=== PATIENT | female | born 1950 | race Asian ===

== ENCOUNTER 2019-02-16 14:00 | Emergency (ER) | payer OTHER, MEDICAID ==
[~2019-02-16] VITALS: Ht 157.5 cm; Wt 63.5 kg
[~2019-02-16 14:00] MED LIST: FURO-149 PO; LEVO175T2 PO; OMEP20CA11 PO; SIMV40TA5 PO
--- NOTE | 2019-02-16 14:04 | NUR ---
CALLED FOR TRIAGE, PT IS IN RESTROOM WITH ASSIST BY FAMILY
[2019-02-16 14:15] VITALS: BP_SYST 133
--- NOTE | 2019-02-16 14:21 | NUR ---
PT OUT OF RESTROOM AND PLACED IN BED #1 AND TRIAGED. REPORT GIVEN TO URBAN
[2019-02-16] MEDS ORDERED: NACL 0.9% 1,000 ML IV ONE (14:39)
--- NOTE | 2019-02-16 14:41 | NUR ---
Patient is awake, alert, and oriented x4. Her daughter is at bedside. Patient is complaining of dizziness and nausea x1 week, she denies vomiting, diarrhea, and pain. No nystagmus noted.
[2019-02-16] MEDS ORDERED: ONDANSETRON HCL 4 MG/2 ML VIAL IVP ONE (14:45)
--- NOTE | 2019-02-16 14:45 | NUR ---
ER Dr. Currie at bedside examining patient.
[2019-02-16] MEDS ORDERED: MECLIZINE HCL 25 MG TABLET (ANITVERT) PO ONE (15:00)
--- NOTE | 2019-02-16 15:26 | NUR ---
X-ray ast bedside.
[2019-02-16 15:32] LABS: CALCIUM 8.8 mg/dL (8.4-11.0); CREATININE 1.45 mg/dL (0.55-1.30); POTASSIUM 4.7 mmol/L (3.5-5.1)
[2019-02-16 15:38] LABS: ALBUMIN 3.6 g/dL (3.4-4.8); TOTAL BILIRUBIN 0.7 mg/dL (0.0-1.0)
[2019-02-16 15:39] LABS: BASOPHILS # (AUTO) 0.1 K/uL (0.0-0.2); BASOPHILS % (AUTO) 0.9 % (0.0-2.0); EOSINOPHILS # (AUTO) 0.3 K/uL (0.0-0.4); EOSINOPHILS % (AUTO) 4.3 % (0.0-4.0); HEMOGLOBIN 11.2 g/dL (12.0-16.0); INR 1.1 (0.8-1.2); LYMPHOCYTES # (AUTO) 0.7 K/uL (1.0-5.5); LYMPHOCYTES % (AUTO) 11.4 % (20.5-51.5); MEAN CORPUSCULAR HEMOGLOBIN 30 pg (27-31); MEAN CORPUSCULAR HGB CONC 33 % (32-36); MEAN CORPUSCULAR VOLUME 92 fL (79.0-98.0); MONOCYTES # (AUTO) 0.5 K/uL (0.0-1.0); MONOCYTES % (AUTO) 8.4 % (1.7-9.3); NEUTROPHILS # (AUTO) 4.7 K/uL (1.8-7.7); PLATELET COUNT (AUTO) 151 K/uL (130-430); PROTHROMBIN TIME 10.9 SECS (9.5-12.5); RED BLOOD CELL COUNT(AUTO) 3.72 MIL/uL (4.2-6.2); RED CELL DISTRIBUTION WIDTH 13.7 % (9.0-15.0); WHITE BLOOD COUNT (AUTO) 6.3 K/uL (4.8-10.8)
--- NOTE | 2019-02-16 15:40 | NUR ---
Patient transported to radiology via gurney, accompanied by emg technician.
--- NOTE | 2019-02-16 15:53 | NUR ---
Returned from radiology, back to [facility].
[2019-02-16 16:48] LABS: BILIRUBIN,URINE NEGATIVE (NEGATIVE); BLOOD, URINE 1+ (NEGATIVE); COLOR,URINE YELLOW (YELLOW); GLUCOSE,URINE NEGATIVE (NEGATIVE); KETONES,URINE NEGATIVE (NEGATIVE); LEUKOCYTE ESTERASE ,URINE 3+ (NEGATIVE); NITRITE, URINE NEGATIVE (NEGATIVE); PROTEIN URINE NEGATIVE (NEGATIVE); UROBILINOGEN,URINE 0.2 (0.2-1.0)
[2019-02-16 17:01] LABS: CLARITY/URINE HAZY (CLEAR)
[2019-02-16 17:04] LABS: BACTERIA,URINE MODERATE /HPF (None Seen); MUCUS,URINE None Seen /LPF (None Seen); RBC,URINE NONE SEEN /HPF (0-3); WBC,URINE 50-80 /HPF (0-3)
--- NOTE | 2019-02-16 17:24 | NUR ---
Patient given written and verbal discharge instructions and verbalizes understanding. ER MD discussed with patient the results and treatment provided. Patient in stable condition. ID arm band removed. IV catheter removed intact and dressing applied, no active bleeding. Rx of antivert, lomotil given. Patient educated on pain management and to follow up with PMD. Pain Scale 0/10. Opportunity for questions provided and answered. Medication side effect fact sheet provided.
[2019-02-16 17:25] VITALS: BP_SYST 128
== END 2019-02-16 17:24 | disposition home or self-care (01) ==
LOC: SED 14:00
DX: R42 Dizziness and giddiness (principal); K52.9 Noninfective gastroenteritis and colitis, unspecified; E11.9 Type 2 diabetes mellitus without complications; F03.90 Unspecified dementia, unspecified severity, without behavioral disturbance, psychotic disturbance, mood disturbance, and anxiety; I10 Essential (primary) hypertension; E07.9 Disorder of thyroid, unspecified; Z79.899 Other long term (current) drug therapy; Z94.4 Liver transplant status
CPT/HCPCS: 36415; 70450; 71045; 80053; 81000; 82140; 82150; 82550; 83605; 83690; 83880; 84484; 85025; 85610; 85730; 87040; 87086; 87186; 93005; 96361; 96374; 99284; J2405; J7030; J8597

== ENCOUNTER 2019-03-02 09:35 | Inpatient (IN) | payer OTHER, MEDICAID ==
[~2019-03-02] VITALS: Ht 162.6 cm; Wt 55.8 kg
[2019-03-02 09:41] VITALS: BP_SYST 101
--- NOTE | 2019-03-02 09:41 | NUR ---
Patient to ER bed 03 to gown for evaluation. Side rails up.
--- NOTE | 2019-03-02 09:45 | NUR ---
Patient brought in by ambulance to the ED c/o flu-like symptoms, generalized weakness and near-syncopal episodes that started a week ago. Patient is a liver transplant recepient. Denied any chest pain or shortness of breath. Denied any fevers or chills. Patient is alert and oriented x4, respirations even and unlabored, speaking in full sentences. Tachycardic, all other VSS, pain level 0/10. Sister at bedside. Informed of wait time. Instructed to notify ED staff for any changes in condition or worsening of symptoms. Patient verbalized understanding.
--- NOTE | 2019-03-02 10:10 | NUR ---
ER Dr. Duffy at bedside re-examining patient.
[2019-03-02] MEDS ORDERED: NACL 0.9% 1,000 ML IV ONE (10:14)
[2019-03-02] MEDS ORDERED: MECLIZINE HCL 25 MG TABLET (ANITVERT) PO ONE (10:15)
--- NOTE | 2019-03-02 10:30 | NUR ---
ECG done at bedside as ordered by Dr. Duffy. Patient tolerated the procedure well. Report given to
--- NOTE | 2019-03-02 10:34 | NUR ---
# 20 gauge angiocath placed to RAC. Use of asceptic technique. Opsite placed over site. Blood return noted. Blood for lab drawn from site. Flushed with 10 cc of normal saline. No evidence of infiltration noted. Patient tolerated well.
--- NOTE | 2019-03-02 10:40 | NUR ---
Administered Meclizine PO as ordered by Dr. Duffy. Patient tolerated the medication well. See eMAR for details.
[2019-03-02 10:50] LABS: BASOPHILS % (AUTO) 0.9 % (0.0-2.0); EOSINOPHILS # (AUTO) 0.2 K/uL (0.0-0.4); HEMATOCRIT 34.2 % (36-48); HEMOGLOBIN 11.3 g/dL (12.0-16.0); LYMPHOCYTES # (AUTO) 0.5 K/uL (1.0-5.5); LYMPHOCYTES % (AUTO) 9.7 % (20.5-51.5); MEAN CORPUSCULAR HEMOGLOBIN 30 pg (27-31); MEAN CORPUSCULAR HGB CONC 33 % (32-36); MEAN CORPUSCULAR VOLUME 92 fL (79.0-98.0); MONOCYTES # (AUTO) 0.3 K/uL (0.0-1.0); MONOCYTES % (AUTO) 7.3 % (1.7-9.3); NEUTROPHILS # (AUTO) 3.7 K/uL (1.8-7.7); NEUTROPHILS % (AUTO) 77.1 % (40.0-70.0); PLATELET COUNT (AUTO) 110 K/uL (130-430); RED BLOOD CELL COUNT(AUTO) 3.74 MIL/uL (4.2-6.2); RED CELL DISTRIBUTION WIDTH 13.5 % (9.0-15.0); WHITE BLOOD COUNT (AUTO) 4.7 K/uL (4.8-10.8)
[2019-03-02 11:06] LABS: CALCIUM 8.8 mg/dL (8.4-11.0); CREATININE 1.49 mg/dL (0.55-1.30); POTASSIUM 5.2 mmol/L (3.5-5.1)
[2019-03-02 11:39] LABS: ALBUMIN 3.4 g/dL (3.4-4.8); TOTAL BILIRUBIN 0.7 mg/dL (0.0-1.0)
--- NOTE | 2019-03-02 12:49 | NUR ---
Flu swab done at bedside as ordered by Dr. Duffy. Patient tolerated the procedure well.
--- NOTE | 2019-03-02 13:10 | NUR ---
Patient taken to CT via gurney, in stable condition.
--- NOTE | 2019-03-02 13:45 | NUR ---
Patient is back from CT in stable condition.
--- NOTE | 2019-03-02 13:55 | NUR ---
called dr tse for admission per dr kennedy.
--- NOTE | 2019-03-02 14:21 | NUR ---
dr tse called back for admission, talking to dr kennedy per admission
[2019-03-02 14:22] LABS: BILIRUBIN,URINE NEGATIVE (NEGATIVE); BLOOD, URINE 3+ (NEGATIVE); CLARITY/URINE SL CLOUDY (CLEAR); COLOR,URINE YELLOW (YELLOW); GLUCOSE,URINE NEGATIVE (NEGATIVE); KETONES,URINE NEGATIVE (NEGATIVE); LEUKOCYTE ESTERASE ,URINE 2+ (NEGATIVE); NITRITE, URINE NEGATIVE (NEGATIVE); PROTEIN URINE NEGATIVE (NEGATIVE); UROBILINOGEN,URINE 0.2 (0.2-1.0)
--- NOTE | 2019-03-02 14:43 | NUR ---
Pt reports she is full code.
[2019-03-02] MEDS ORDERED: PRED5TAB PO (14:52)
[2019-03-02] MEDS ORDERED: GLU500 PO (14:52)
[2019-03-02] MEDS ORDERED: TACR1CAP PO (14:52)
[2019-03-02] MEDS ORDERED: COLC0.6T67 PO (14:52)
[2019-03-02] MEDS ORDERED: CEL250 PO (14:52)
[2019-03-02] MEDS ORDERED: BACL10TA PO (14:52)
[2019-03-02] MEDS ORDERED: CHOL2000 PO (14:52)
[2019-03-02] MEDS ORDERED: MULT-1089 PO (14:52)
[2019-03-02] MEDS ORDERED: MAGN400T10 PO (14:52)
[2019-03-02] MEDS ORDERED: GABA-529 PO (14:53)
[2019-03-02 15:02] LABS: BACTERIA,URINE MODERATE /HPF (None Seen); RBC,URINE 20-50 /HPF (0-3)
--- NOTE | 2019-03-02 15:05 | NUR ---
Transfer to 103B via ACLS protocol. Licensed nurse present. IV present no signs or symptoms of infiltration. Patient will be admitted to care of Dr. Fitzgerald. Admitted to MST unit. Will go to room 103B. Belongings list completed. Complete and up to date summary report printed. SBAR report to be given at bedside with opportunity for questions.
--- NOTE | 2019-03-02 15:27 | NUR ---
Opening Note patient brought to room 103B via gurney, received bedside SBAR report from MANAGER SERVICE DESK, patient resting in bed, no acute distress noted, respirations even and unlabored on room air, IV site clean, dry, and intact, cardiac tele monitor in place, patient denies any pain or dizziness, patients sister Marbin at bedside, educated patient on use of call light and asked to call for assistance, patient verbalized understanding, call light in reach, bed in low and locked position, bed alarm on.
--- NOTE | 2019-03-02 15:28 | NUR ---
CONSULTATION PAGED REASON FOR CONSULTATION:RULE OUT ARRYTHMIA WAS CONSULT CALLED?Y PERSON WHO WAS NOTIFIED:SHAQUILLE CONSULTING PHYSICIAN:JORDAN PASCUAL TARIFF SUPERVISOR SPECIALTY:CARDIO TARIFF SUPERVISOR PHONE NUMBER:[phone] REQUESTING PHYSICIAN:UCHE ALATORRE
[2019-03-02 15:30] VITALS: BP_SYST 153
[2019-03-02] MEDS ORDERED: FLU VACC TS2019(65UP)/MF59C/PF 45 MCG/0.5 ML SYRINGE I.M. PRN (15:45)
[2019-03-02] MEDS ORDERED: ACETAMINOPHEN 325 MG TABLET PO PRN (17:00)
[2019-03-02] MEDS: INSULIN LISPRO SLIDING SCALE 100 UNITS/ML VIAL (humaLOG) SUBCUT PRN (17:20)
--- NOTE | 2019-03-02 17:45 | NUR ---
RN Rounds patient sitting up in bed eating dinner, patient tolerating well, no acute distress noted, respirations even and unlabored.
--- NOTE | 2019-03-02 18:05 | NUR ---
Physician Rounds Dr. Fitzgerald at bedside examining patient.
--- NOTE | 2019-03-02 18:30 | NUR ---
Physician Rounds Dr. Juárez at bedside examining patient.
[2019-03-02] MEDS: NACL 0.9% 1,000 ML IV SCH (18:52)
[2019-03-02] MEDS: cefTRIAXone 1 GM in D5W 50 ML IV SCH (19:12)
--- NOTE | 2019-03-02 19:26 | NUR ---
Closing Note bedside SBAR report given to receiving RN, patient resting in bed, no acute distress noted, respirations even and unlabored on room air, educated patient on use of call light and asked to call for assistance, patient verbalized understanding, call light in reach, bed in low and locked position, bed alarm on, care endorsed to maintenance supervisor 2nd shift RN.
--- NOTE | 2019-03-02 19:28 | NUR ---
Opening note / US study Received patient resting in bed, no s/sx of distress. computer technology instructor at bed side for ultrasound study. IVF infusing via IV on RAC. Bed is locked in lowest position, side rails up 3x, and call light w/in reach.
[2019-03-02 20:00] VITALS: BP_SYST 109
[2019-03-02] MEDS: MAGNESIUM OXIDE 400 MG TABLET PO SCH (22:20)
[2019-03-02] MEDS: TACROLIMUS ANHYDROUS 1 MG CAPSULE (PROGRAF) PO SCH (22:20)
[2019-03-02] MEDS: COLCHICINE 0.6 MG TABLET PO SCH (22:20)
[2019-03-02] MEDS: MYCOPHENOLATE MOFETIL 250 MG CAPSULE PO SCH (22:20)
[2019-03-02] MEDS: GABAPENTIN 100 MG CAPSULE PO SCH (22:20)
--- NOTE | 2019-03-02 22:20 | NUR ---
Medications Due medications given, educated on side effects she verbalized understanding. She swallowed tablets/capsules without difficulty.
--- NOTE | 2019-03-02 22:35 | NUR ---
Bed reynaga Patient assisted with use of bed reynaga, voided. Provided with makayla-care. She was reminded to use call light, bed alarm on.
[2019-03-03] VITALS: BP_SYST 108
--- NOTE | 2019-03-03 01:25 | NUR ---
CONSULTATION PAGED/CALLED Reason for Consultation: SYNCOPE,SHAKING AND TO R/O SZ Person Who was Notified: JACQUELINE Consulting Physician: MIYA Reconciliation Manager Specialty: Ordering Physician: DIDIER
--- NOTE | 2019-03-03 02:17 | NUR ---
Sleeping Patient is sleeping in comfortable position. Nonlabored breathing, IVF infusing well. Safety and seizure precautions in place. Call light w/ in reach.
--- NOTE | 2019-03-03 04:14 | NUR ---
RN rounds Patient is resting w/ eyes closed. Nonlabored breathing, IVF infusing well. Safety and seizure precautions in place. Call light w/ in reach.
[2019-03-03] MEDS: NACL 0.9% 1,000 ML IV SCH ×2 (06:29→20:54)
--- NOTE | 2019-03-03 06:39 | NUR ---
closing note Fingerstick BG test done and obtained result of 82 mg/dL, no coverage due. Hung new bag of IVF NS and infusing as ordered at 80 ml/hr. Patient is stable, no s/sx of distress. She requested t.v. on and she was assisted. Needs met throughout shift, will endorse care to incoming day shift.
[2019-03-03 07:49] LABS: MEAN CORPUSCULAR HEMOGLOBIN 30 pg (27-31); MEAN CORPUSCULAR HGB CONC 33 % (32-36); MEAN CORPUSCULAR VOLUME 91 fL (79.0-98.0)
[2019-03-03 08:00] VITALS: BP_SYST 125
[2019-03-03 08:12] LABS: ALBUMIN 2.7 g/dL (3.4-4.8); BILIRUBIN,DIRECT 0.1 mg/dL (0.0-0.3); CALCIUM 8.3 mg/dL (8.4-11.0); CREATININE 1.17 mg/dL (0.55-1.30); TOTAL BILIRUBIN 0.6 mg/dL (0.0-1.0)
[2019-03-03 08:54] LABS: THYROID STIMULATING HORMONE 0.21 uIu/mL (0.34-4.82)
[2019-03-03] MEDS ORDERED: LEVOTHYROXINE SODIUM 0.125 MG TABLET PO SCH (09:00)
[2019-03-03 09:12] LABS: HEMATOCRIT 28.7 % (36-48); HEMOGLOBIN 9.5 g/dL (12.0-16.0); RED BLOOD CELL COUNT(AUTO) 3.15 MIL/uL (4.2-6.2); WHITE BLOOD COUNT (AUTO) 3.3 K/uL (4.8-10.8)
[2019-03-03 09:13] LABS: PLATELET COUNT (AUTO) 84 K/uL (130-430); RED CELL DISTRIBUTION WIDTH 13.5 % (9.0-15.0)
[2019-03-03 09:16] LABS: ATYPICAL LYMPHOCYTES % 0 % (0-0); BAND % (MANUAL) 1 % (0-6); BASOPHILS % (MANUAL) 0 % (0-2); EOSINOPHILS % (MANUAL) 7 % (0-7); LYMPHOCYTES % (MANUAL) 16 % (20-46); MONOCYTES % (MANUAL) 9 % (0-11)
[2019-03-03] MEDS: BACLOFEN 10 MG TABLET PO SCH (09:40)
[2019-03-03] MEDS: CHOLECALCIFEROL (VITAMIN D3) 2,000 UNIT TABLET PO SCH (09:41)
[2019-03-03] MEDS: PREDNISONE 10 MG TABLET PO SCH (09:41)
[2019-03-03] MEDS: COLCHICINE 0.6 MG TABLET PO SCH ×2 (09:41→20:54)
[2019-03-03] MEDS: GABAPENTIN 100 MG CAPSULE PO SCH ×2 (09:41→20:54)
[2019-03-03] MEDS: SIMVASTATIN 20 MG TABLET PO SCH (09:41)
[2019-03-03] MEDS: FAMOTIDINE 20 MG TABLET PO SCH (09:41)
[2019-03-03] MEDS: MYCOPHENOLATE MOFETIL 250 MG CAPSULE PO SCH ×2 (09:48→20:54)
[2019-03-03] MEDS: TACROLIMUS ANHYDROUS 1 MG CAPSULE (PROGRAF) PO SCH ×3 (09:49→20:55)
[2019-03-03] MEDS: MAGNESIUM OXIDE 400 MG TABLET PO SCH ×2 (09:49→20:54)
[2019-03-03] MEDS ORDERED: LEVOTHYROXINE SODIUM 0.1 MG TABLET PO ONE (10:30)
[2019-03-03 12:32] VITALS: BP_SYST 111
[2019-03-03] MEDS: INSULIN LISPRO SLIDING SCALE 100 UNITS/ML VIAL (humaLOG) SUBCUT PRN (17:07)
[2019-03-03 17:19] VITALS: BP_SYST 115
[2019-03-03] MEDS: cefTRIAXone 1 GM in D5W 50 ML IV SCH (19:00)
--- NOTE | 2019-03-03 19:10 | NUR ---
PM ASSESSMENT Received pt in bed with eyes open resting comfortably. No signs of acute distress or discomfort noted. IVF infusing to pt's RFA IV. Pt doesn't verbalize any needs at this time. Bed is locked and in lowest position, call light within reach, will cont to monitor pt.
[2019-03-03 21:00] VITALS: BP_SYST 121
--- NOTE | 2019-03-03 21:00 | NUR ---
Came into room and pt was sitting on at bedside chair. Pt states "I had to use the bathroom and I could not hold it, when I went to the bathroom I fell." No one witnessed the fall. Asked the pt if she was in pain due to the claimed unwitnessed fall, pt denied any pain and was able to move all extremities. No signs of acute distress or discomfort noted. Bed alarm did not go off, pt did not use call light even though call light was to on bed. Charge nurse aware. Helped pt back to bed and made comfortable. Bed is locked and in lowest position, call light within reach, will cont to monitor pt.
--- NOTE | 2019-03-04 02:30 | NUR ---
Pt in bed with eyes closed resting comfortably. No signs of acute distress or discomfort noted. Pt on RA, tolerating well with even and unlabored breathing. Bed is locked and in lowest position, call light within reach, will cont to monitor pt.
--- NOTE | 2019-03-04 06:10 | NUR ---
Asked pt if she wanted to let sister know about her fall last night. Pt refused stating "I don't want to worry her, she will be coming in today so i'll let her know then". No signs of acute distress or discomfort noted. Will cont to monitor pt.
--- NOTE | 2019-03-04 06:35 | NUR ---
Dr. Fitzgerald made aware of pt's claimed fall at this time. Let pt MD know that pt was not in any pain. Will cont to monitor pt.
--- NOTE | 2019-03-04 06:35 | NUR ---
ATTENDING MD DR VELÁSQUEZ WAS CALLED RE: TO INFORM THAT PT CLAIMED THAT SHE FELL ON THE FLOOR WHILE WALKING GOING TO THE BATHROOM FROM HER BED. SPOKE TO KENA.
[2019-03-04] MEDS ORDERED: LEVOTHYROXINE SODIUM 0.1 MG TABLET PO SCH (07:00)
--- NOTE | 2019-03-04 07:20 | NUR ---
ENDORSEMENT Report given to oncoming dayshift RN using SBAR format and pt care was endorsed. No signs of acute distress or discomfort noted.
[2019-03-04 08:00] VITALS: BP_SYST 109
[2019-03-04] MEDS: GABAPENTIN 100 MG CAPSULE PO SCH ×2 (09:47→20:05)
[2019-03-04] MEDS: COLCHICINE 0.6 MG TABLET PO SCH ×2 (09:47→20:05)
[2019-03-04] MEDS: SIMVASTATIN 20 MG TABLET PO SCH (09:47)
[2019-03-04] MEDS: MAGNESIUM OXIDE 400 MG TABLET PO SCH ×2 (09:47→20:05)
[2019-03-04] MEDS: PREDNISONE 10 MG TABLET PO SCH (09:47)
[2019-03-04] MEDS: FAMOTIDINE 20 MG TABLET PO SCH (09:47)
[2019-03-04] MEDS: CHOLECALCIFEROL (VITAMIN D3) 2,000 UNIT TABLET PO SCH (09:47)
[2019-03-04] MEDS: BACLOFEN 10 MG TABLET PO SCH (09:48)
[2019-03-04] MEDS: MYCOPHENOLATE MOFETIL 250 MG CAPSULE PO SCH ×2 (09:49→20:05)
[2019-03-04] MEDS: TACROLIMUS ANHYDROUS 1 MG CAPSULE (PROGRAF) PO SCH ×3 (09:51→20:05)
[2019-03-04] MEDS: NACL 0.9% 1,000 ML IV SCH (09:58)
[2019-03-04 11:35] VITALS: BP_SYST 112
--- NOTE | 2019-03-04 15:06 | NUR ---
Dietitian Recommendations * [facility] diet w/ Glucerelina BID, Mejia BID (supplements provide ~620 kcal/day, 25 gm protein/day) VICKEY BLACK Please refer to Nutrition Assessment for details. Addendum: 03/04/19 at [address] Amended: Links added.
[2019-03-04 15:39] VITALS: BP_SYST 111
[2019-03-04] MEDS: INSULIN LISPRO SLIDING SCALE 100 UNITS/ML VIAL (humaLOG) SUBCUT PRN (19:10)
--- NOTE | 2019-03-04 19:30 | NUR ---
OPENING NOTES Patient is resting, no signs of acute respiratory distress observed. IVF running, IV antibiotics provided and will provide medication for 2100. Family at bedside. Bed alarm on, bed at lowest position, call light within reach. Will continue to monitor.
[2019-03-04] MEDS: cefTRIAXone 1 GM in D5W 50 ML IV SCH (19:49)
[2019-03-04 19:59] VITALS: BP_SYST 147
--- NOTE | 2019-03-04 20:50 | NUR ---
D/C Patient Patient given medication reconciliation form and D/C instructions. Exit Care provided. Patient and family verbalized understanding. MD discussed with patient the results and treatment provided. Ambulatory with steady gait, wheeled with wheelchair for discharge to home. Patient in stable condition, ID band removed. IV catheter removed, intact and dressing applied, no active bleeding. Patient educated on prevention of falls and dizziness. All belongings sent with patient.
== END 2019-03-04 20:50 | disposition home or self-care (01) | DRG 682 ==
LOC: SED 09:35 → STU 14:25
PROVIDERS: ADMIT Internal Medicine; ATTEND Internal Medicine
DX: N17.0 Acute kidney failure with tubular necrosis (principal); R65.11 Systemic inflammatory response syndrome (SIRS) of non-infectious origin with acute organ dysfunction; Z94.4 Liver transplant status; E44.0 Moderate protein-calorie malnutrition; N39.0 Urinary tract infection, site not specified; R55 Syncope and collapse; D64.9 Anemia, unspecified; I12.9 Hypertensive chronic kidney disease with stage 1 through stage 4 chronic kidney disease, or unspecified chronic kidney disease; D69.6 Thrombocytopenia, unspecified; N18.2 Chronic kidney disease, stage 2 (mild); E11.22 Type 2 diabetes mellitus with diabetic chronic kidney disease; E87.5 Hyperkalemia; E89.0 Postprocedural hypothyroidism; W18.30XA Fall on same level, unspecified, initial encounter; F03.90 Unspecified dementia, unspecified severity, without behavioral disturbance, psychotic disturbance, mood disturbance, and anxiety; M25.511 Pain in right shoulder; Y93.89 Activity, other specified; Y92.89 Other specified places as the place of occurrence of the external cause; Z87.891 Personal history of nicotine dependence; Y99.8 Other external cause status; Z79.899 Other long term (current) drug therapy; Z98.49 Cataract extraction status, unspecified eye; Z68.21 Body mass index [BMI] 21.0-21.9, adult
CPT/HCPCS: 36415; 70450-TC; 71045; 73030; 76770; 80048; 80053; 80061; 80076; 81000-TC; 82140-TC; 82962; 83735-TC; 84443-TC; 84484; 85007; 85025; 85027; 86710; 87086; 93005; 93306; 95816; 96360; 99285; G0378; J0696; J7030; J7060; J7507; J7512; J7517; J8597

== ENCOUNTER 2019-08-23 18:27 | Emergency (ER) | payer OTHER, MEDICAID ==
[~2019-08-23] VITALS: Ht 160 cm; Wt 53.1 kg
[~2019-08-23 18:27] MED LIST changes: +BACL10TA PO; +CEL250 PO; +CHOL2000 PO; +COLC0.6T67 PO; -FURO-149 PO; +GABA-529 PO; +GLU500 PO; +MAGN400T10 PO; +MULT-1089 PO; -OMEP20CA11 PO; +PRED5TAB PO; +TACR1CAP PO
--- NOTE | 2019-08-23 18:30 | NUR ---
Patient to ER bed 03 to gown for evaluation. Side rails up. Report given to GRACIELA PADILLA.
[2019-08-23 18:39] VITALS: BP_SYST 82
--- NOTE | 2019-08-23 18:40 | NUR ---
Patient transferred from [facility] to [facility]. Patient picked up by [facility] for transfer. EMT reports that in ambulance SBP 70s. Patient voiced no complaints. Patient was admitted to [facility] on 08/16/19 for T12 fracture s/p fall from home. No other injuries per patient or as noted. Will continue to monitor.
--- NOTE | 2019-08-23 18:43 | NUR ---
ER Dr. AUGUSTINE at bedside examining patient.
[2019-08-23] MEDS ORDERED: NACL 0.9% 1,000 ML IV ONE ×2 (18:45→20:30)
--- NOTE | 2019-08-23 19:17 | NUR ---
report given to GRACIELA Martinez for continuation of care.
[2019-08-23 19:26] LABS: BASOPHILS % (AUTO) 0.7 % (0.0-2.0); HEMATOCRIT 28.1 % (36-48); HEMOGLOBIN 9.2 g/dL (12.0-16.0); LYMPHOCYTES # (AUTO) 0.3 K/uL (1.0-5.5); LYMPHOCYTES % (AUTO) 8.4 % (20.5-51.5); MEAN CORPUSCULAR HEMOGLOBIN 28 pg (27-31); MEAN CORPUSCULAR HGB CONC 33 % (32-36); MEAN CORPUSCULAR VOLUME 87 fL (79.0-98.0); MONOCYTES # (AUTO) 0.2 K/uL (0.0-1.0); MONOCYTES % (AUTO) 5.7 % (1.7-9.3); NEUTROPHILS # (AUTO) 3.3 K/uL (1.8-7.7); NEUTROPHILS % (AUTO) 85.2 % (40.0-70.0); PLATELET COUNT (AUTO) 98 K/uL (130-430); RED BLOOD CELL COUNT(AUTO) 3.24 MIL/uL (4.2-6.2); RED CELL DISTRIBUTION WIDTH 14.4 % (9.0-15.0); WHITE BLOOD COUNT (AUTO) 3.9 K/uL (4.8-10.8)
[2019-08-23 20:12] LABS: CALCIUM 9.3 mg/dL (8.4-11.0); CREATININE 2.43 mg/dL (0.55-1.30); POTASSIUM 5.7 mmol/L (3.5-5.1)
[2019-08-23 20:20] LABS: ALBUMIN 2.2 g/dL (3.4-4.8); TOTAL BILIRUBIN 0.7 mg/dL (0.0-1.0)
[2019-08-23] MEDS ORDERED: DEXTROSE 50% JECT 50 ML DISP.SYRIN IVP ONE (20:30)
[2019-08-23] MEDS ORDERED: SODIUM POLYSTYRENE SULFONATE 15 GM/60 ML UDBTL PO ONE (20:30)
[2019-08-23] MEDS ORDERED: INSULIN REGULAR, HUMAN 10 UNITS/0.1 ML INJ IVP ONE (20:30)
--- NOTE | 2019-08-23 21:25 | NUR ---
report given to GRACIELA Higginbotham . Patient will be transferred to [facility]12[facility].
== END 2019-08-23 23:40 | disposition home or self-care (01) ==
LOC: SED 18:27
DX: I95.9 Hypotension, unspecified (principal); E87.5 Hyperkalemia; E87.1 Hypo-osmolality and hyponatremia; I10 Essential (primary) hypertension; E11.9 Type 2 diabetes mellitus without complications; Z79.84 Long term (current) use of oral hypoglycemic drugs; Z79.899 Other long term (current) drug therapy
CPT/HCPCS: 36415; 71045; 80053; 82550-TC; 83880; 84484; 85025; 93005; 99285